=== PATIENT | male | born 1980 | race Caucasian/White ===

== ENCOUNTER 2020-02-22 10:50 | Outpatient (CLI) | payer OTHER | END 2020-02-22 14:25 | disposition home or self-care (01) | LOC: LAB 10:50 | DX: Z20.828 Contact with and (suspected) exposure to other viral communicable diseases (principal); Z11.59 Encounter for screening for other viral diseases ==

== ENCOUNTER 2021-02-27 13:50 | Outpatient (CLI) | payer OTHER | END 2021-02-27 13:52 | disposition home or self-care (01) | LOC: LAB 13:50 | PROVIDERS: ATTEND Surgery | DX: Z11.52 Encounter for screening for COVID-19 (principal) ==

== ENCOUNTER 2021-03-16 12:17 | Outpatient (CLI) | payer OTHER | END 2021-03-16 12:20 | disposition home or self-care (01) | LOC: LAB 12:17 | PROVIDERS: ATTEND Surgery | DX: U07.1 COVID-19 (principal) ==

== ENCOUNTER → 2021-04-03 10:43 | Outpatient (CLI) | payer OTHER | END | disposition home or self-care (01) | LOC: LAB 10:43 | PROVIDERS: ATTEND Surgery | DX: Z20.828 Contact with and (suspected) exposure to other viral communicable diseases (principal) ==

== ENCOUNTER 2021-07-03 08:00 | Outpatient (CLI) | payer OTHER | END 2021-07-03 08:30 | disposition home or self-care (01) | LOC: PPH VACUNA 08:00 | PROVIDERS: ATTEND Emergency Medicine Pediatric Emergency Medicine | DX: Z23 Encounter for immunization (principal) ==

== ENCOUNTER 2022-11-19 10:53 | Outpatient (CLI) | payer OTHER | END 2022-11-19 10:54 | disposition home or self-care (01) | LOC: RAD 10:53 | PROVIDERS: ATTEND Orthopaedic Surgery | DX: M79.671 Pain in right foot (principal) ==